=== PATIENT | male | born 2005 | race Caucasian/White ===

== ENCOUNTER 2024-01-13 13:13 | Emergency (ER) | payer OTHER, SELFPAY ==
[2024-01-13 13:14] VITALS: BP 133/80; PULSE 83; RESP 16; TEMP 36.3; O2SAT 100; BMI 26.6
--- NOTE | 2024-01-13 14:36 | CT_ITS ---
INDICATION: Trauma, head injury EXAMINATION: CT CERVICAL SPINE - CT Spine Cervical W/O Contrast Injection TECHNIQUE: Helically acquired images were obtained of the cervical spine. 2D reformatted images were reviewed. A radiation dose optimization technique was used for this scan. IV Contrast dosage and agent: None. COMPARISON: None. FINDINGS: VERTEBRAE: No acute fracture. Normal alignment. Normal craniocervical junction and cervicothoracic junction. DISCS and SPINAL CANAL: Disc heights are preserved. NECK SOFT TISSUES: No prevertebral soft tissue swelling. LUNG APICES: Clear. CT/Spine Cervical without Contras IMPRESSION: No acute bony injury. Electronically Signed: Kumar Freitas MD at 15:47 EDT ,
--- NOTE | 2024-01-13 14:36 | CT_ITS ---
INDICATION: Trauma, head injury EXAMINATION: CT BRAIN - CT Head or Brain W/O Contrast Injection TECHNIQUE: Multiple axial images were obtained of the head without intravenous contrast. A radiation dose optimization technique was used for this scan. IV Contrast dosage and agent: None. COMPARISON: None. FINDINGS: BRAIN PARENCHYMA: No intra- or extra-axial hemorrhage. No evidence of acute infarct. No intracranial mass or mass effect. There is preservation of the puga/white matter interface. Posterior fossa structures are unremarkable. CSF SPACES: Appropriate for age. No hydrocephalus. Basal cisterns are patent. CALVARIUM, SKULL BASE, PARANASAL SINUSES AND MASTOID AIR CELLS: Scattered mucoperiosteal thickening. No acute fracture. ORBITS: Both globes, extraocular muscles, optic nerves and retrobulbar fat appear unremarkable. CT/Brain/Head without Contrast IMPRESSION: No acute intracranial findings. Electronically Signed: Kumar Freitas MD at 15:36 EDT ,
--- NOTE | 2024-01-13 14:37 | EDS_ITS ---
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 States that he was told he fell down the steps hit his head on the wall and had a loss of consciousness. He is unsure how long. Today he is nauseated and vomiting he believes it is from being drunk last night. Denies any severe headache. Denies neck pain. Denies other complaints. Prior similar symptoms: No Recent Illness/Hospitalization: No PFSH PFSH Medical History no medical history Allergy/AdvReac Type Severity Reaction Status Date / Time No Known Allergies Allergy Verified 01/13/24 13:14 Surgical History no surgical history Social History Smoking Status: Never smoker ROS ROS ED ROS Narrative Nausea and vomiting today. Constitutional Constitutional ED: Denies chills or fever(s) Eyes Eyes: Denies blurry vision ENT ENT ED: Denies ear pain Cardiovascular Cardiovascular: Denies chest pain Respiratory/Chest Respiratory/Chest: Denies cough or dyspnea Gastrointestinal Gastrointestinal: Reports nausea; Denies abdominal pain, constipation, diarrhea or melena Genitourinary Genitourinary ED: Denies dysuria or hematuria Musculoskeletal Musculoskeletal: Denies arthralgias Integumentary Denies abscess Neurologic Neurologic: Denies headache(s) Psychiatric Psychiatric: Denies anxiety Endocrine Endocrinology: Denies polydipsia Hematologic/Lymphatic Hematologic/Lymphatic: Denies easy bleeding, easy bruising or lymphadenopathy Allergic/Immunologic Allergic/Immunologic ED: Denies mouth swelling, tongue swelling or urticaria EXAM Physical Exam Narrative Exam Narrative: 18-year-old male actively nausea and vomiting in the room. No one else present. H EENT exam pupils round reactive light. Motions are intact. No facial trauma. Dentition intact. Scalp nontender no hematoma or laceration. C-spine nontender. Trachea midline. Back nontender spine nontender. No bruising. Lungs clear to auscultation bilaterally. Heart regular rate and rhythm rate about 80 no murmur. Chest wall ribs nontender. Abdomen soft nontender. No bruising. Pelvic girdle intact. Moving all 4 extremities. 5 out of 5 ed transporter strength. Dorsi plantarflexion intact. Normal range of motion. No deformity. Neurologically he is awake and alert. Answer questions following commands. He can ambulate. GCS of 15. Const Vital Signs: 01/13/24 13:14 01/13/24 14:17 01/13/24 15:13 Temperature 97.4 F L Temperature Source Temporal Pulse Rate 83 65 Respiratory Rate 16 16 Respiratory Effort Normal Respiratory Depth Normal Respiratory Pattern Normal Blood Pressure 133/80 H 119/80 Blood Pressure Mean 97 93 Pulse Ox 100 99 Oxygen Delivery Method Room Air Room Air 01/13/24 16:55 01/13/24 18:00 Temperature Temperature Source Pulse Rate 72 85 Respiratory Rate 16 17 Respiratory Effort Respiratory Depth Respiratory Pattern Blood Pressure 135/56 H 122/88 H Blood Pressure Mean 82 99 Pulse Ox 99 97 Oxygen Delivery Method Room Air Room Air Positive well nourished and well developed; Negative for obese, cachectic, contractures or unkempt General Appearance ED: well developed and NAD; Negative for unkempt, cachectic or contractures Nutritional Appearance: Negative for cachectic or obese HEENT Reports normocephalic trauma; Negative for atraumatic, contusion, hematoma or tenderness Eyes PERRL and EOMs intact bilaterally General Eye ED: Yes pale conjunctiva; Negative for scleral icterus Neck full ROM, no lymphadenopathy and supple General: Negative for tenderness Chest Wall inspection of chest normal and palpation of chest normal Resp normal respiratory effort, no retractions and clear to auscultation bilaterally Auscultation: Negative for rales, rhonchi, wheezes or diminished lung sounds Cardio regular rate, regular rhythm, S1 normal heart sound, S2 normal heart sound and no murmurs Rate: Negative for bradycardia or tachycardic Rhythm: Negative for abnormal rhythm GI non-tender and no masses Inspection: Negative for abdominal distention Palpation: soft; Negative for guarding or rebound tenderness present Back/Spine no CVA tenderness General Back: Negative for CVA tenderness, erythema, ecchymosis, swelling or tenderness Cervical Spine: Negative for cervical spine tenderness Lumbar Spine / Lower Back: lumbar spinal tenderness Neuro oriented x3, CN's II-XII intact bilaterally, moves all extremities, no focal motor deficits and no sensory deficits noted Tim Coma Scale: document GCS findings Spontaneous Obeys Commands Oriented 15 Sensorium / Orientation: alert, oriented to person, oriented to place and oriented to time; Negative for orientation impaired, confused or lethargic Motor Exam: strength 5/5 throughout Psych mental status grossly normal and thought process normal Appearance: Negative for unkempt Attitude: No agitated Mood & Affect: Negative for depressed, anxious or tearful Skin Lesions: no lesions Rashes: no rashes Trauma: Negative for abrasion or laceration MDM MDM MDM Narrative Medical decision making narrative: 18-year-old male intoxicated last night fell struck his head having nausea and vomiting today. CT head and neck being obtained. IV Zofran and reassess. I went back to reassess the patient and discharge him in a left prior to being discharged. I did call him on the phone and spoke to him at 7:27 PM. Went over his normal CAT scan of his head neck. Gave him home-going instructions. 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 He knows to return if worse. Radiography Diagnostic Testing: Clinical Impression(s) from Imaging Studies Brain CT 01/13/24 14:36 IMPRESSION: No acute intracranial findings. Electronically Signed: Kumar Freitas MD at 15:36 EDT , Cervical Spine CT 01/13/24 14:36 IMPRESSION: No acute bony injury. Electronically Signed: Kumar Freitas MD at 15:47 EDT , Discharge Plan Triage Chief Complaint: Fall ED Provider: Angelo Diaz Dx/Rx/DC Orders Clinical Impression: Fall down steps, Closed head injury, Concussion Primary Care Provider: Josse Sumner Referrals: Josse Sumner MD [Primary Care Provider] - Print Language: [place] Disposition Discharge Date/Time: 01/13/24 19:23
[2024-01-13] MEDS: Ondansetron 4 MG/2 ML Vial IV (14:53)
[2024-01-13 15:13] VITALS: BP 119/80; PULSE 65; RESP 16; O2SAT 99
[2024-01-13 16:55] VITALS: BP 135/56; PULSE 72; RESP 16; O2SAT 99
[2024-01-13 18:00] VITALS: BP 122/88; PULSE 85; RESP 17; O2SAT 97
--- NOTE | 2024-01-13 19:21 | ED.RN ---
Pt did not want to wait for MD Re-eval. States he needed to get home. Dr. Diaz aware, IV taken out.
== END 2024-01-13 19:23 | disposition left against medical advice (07) ==
PROVIDERS: Emergency Provider Emergency Medicine; PCP Pediatrics; Visit Provider Emergency Medicine
DX: S06.0XAA Concussion with loss of consciousness status unknown, initial encounter (principal); W10.9XXA Fall (on) (from) unspecified stairs and steps, initial encounter
CPT/HCPCS: 70450; 72125; 96374; 99283; A4216; J2405